=== PATIENT | female | born 1975 | race Caucasian/White ===

== ENCOUNTER 2023-12-15 18:04 | Emergency (ER) | payer OTHER, SELFPAY ==
--- NOTE | ~2023-12-15 | XR_ITS ---
EXAMINATION: XR CHEST CLINICAL INFORMATION: Shortness of breath. COMPARISON: Chest radiograph 07/18/2016. TECHNIQUE: 2 views of the chest were obtained. FINDINGS: Normal appearance of the cardiomediastinal silhouette. No focal airspace opacities, pleural effusion or pneumothorax. No acute osseous findings. Visualized upper abdomen is within normal limits. XR/XR chest 2V IMPRESSION: No acute cardiopulmonary findings.
[2023-12-15 18:30] VITALS: BP 144/94; PULSE 99; RESP 16; TEMP 36.8; O2SAT 100; BMI 33.0
--- NOTE | 2023-12-15 18:30 | ED_ITS ---
HPI - SOB/Dyspnea General Chief Complaint: Upper Respiratory Symptoms Stated Complaint: referred by for chest xray Time Seen by Provider: 12/15/23 21:35 Source: patient Mode of arrival: ambulatory Limitations: no limitations History of Present Illness HPI Narrative: 48 yo female here from for shortness of breath and headache x2 days. no sick contacts. BP 150/110 at [facility] today. ended up leaving and being evaluated at . Admits to chest pain beginning while at [facility] and believes this is due to frustration with waiting at [facility]. on lisinopril for BP- takes this at night. has not taken this today. denies fever, chills, cough, sputum production, calf pain. no recent travel or long car rides. Patient feels fine as long as she is resting, declined losing blood rectally or vaginally, both grandparents at mother side from CHF. Currently patient has no CP or SOB. Related Data Allergies Allergy/AdvReac Type Severity Reaction Status Date / Time honey [HONEY] Allergy Unknown THROAT Unverified 07/06/20 15:04 CLOSES Review of Systems 2 Review of Systems: All other systems are reviewed and are negative Constitutional: Reports as per HPI and Reports no additional constitutional complaints Eyes: Reports as per HPI and Reports no additional eye complaints Reports system reviewed and no additional complaints, except as documented Cardiovascular: Reports as per HPI and Reports no additional cardiovascular complaints Respiratory: Reports as per HPI and Reports no additional respiratory complaints Gastrointestinal: Reports as per HPI and Reports no additional gastrointestinal complaints Genitourinary: Reports no additional female genitourinary complaints Musculoskeletal: Reports no additional musculoskeletal complaints Skin/Breast: Reports system reviewed and no additional complaints, except as docu Psychiatric: Reports no additional psychiatric complaints Endocrine: Reports no additional endocrine complaints Hematologic/Lymphatic: Reports no additional hematologic/lymphatic complaints Allergic/Immunologic: Reports no additional allergic/immunologic complaints Reports system reviewed and no additional complaints, except as documented and Reports Abnormal speech present [facility] Social History Social History Advance Directives: No Advance Directives Information Provided: No Physical Exam 2 Vital Signs: Vital Signs: Last Vital Signs Temp 98.2 F 12/15/23 18:30 Pulse 83 12/15/23 21:06 Resp 20 12/15/23 21:06 BP 131/90 H 12/15/23 21:06 Pulse Ox 100 12/15/23 21:06 O2 Del Method Room Air 12/15/23 21:06 BMI result Body Mass Index 33.0 Vital signs have been reviewed and appear to be correct. Blood pressure elevated. Heart rate normal. Respiratory rate normal. Temperature normal. Oxygen saturation normal. Appearance: Alert. Oriented X3. No acute distress. Head: Normal external exam. Normocephalic. Atraumatic. No Garcia signs noted. No raccoon eyes noted Eyes: PERRLA. EOMI. Conjunctiva and sclera normal. Eyelids normal. ENT: TM's Normal. Pharynx normal. Uvula midline. Moist mucous membranes. No trismus noted. No drooling noted. No muffled voice noted. Neck: Normal inspection. Neck supple. FROM. No adenopathy. Thyroid Normal. No meningeal signs. No neck mass noted. CVS: Normal heart rate and rhythm. Heart sound normal. No murmurs noted. Pulses normal throughout. Respiratory: No respiratory distress. Painless inspiration. Breath sounds normal. No wheezes/rales/rhonchi noted. Chest nontender. No accessory muscle usage noted or decreased air movement noted. Abdomen: Soft and nontender. Bowel sounds normal in all 4 quadrants. No distention noted. No organomegaly noted. No visible injury noted. Back: No CVA tenderness. Full range of motion noted. Skin: Skin warm and dry. Normal skin color. Normal skin turgor. No rashes/lesions/lacerations noted. Extremities: No lower extremity edema. Extremities exhibit normal range of motion. Extremities nontender. Neuro: Oriented X 3. Cranial nerve exam: II-XII are grossly intact No motor deficit. No sensory deficit. Reflexes normal. Course Course Course Narrative: RME:?48 yo female here from for shortness of breath and headache x2 days. no sick contacts. BP 150/110 at [facility] today. ended up leaving and being evaluated at . Admits to chest pain beginning while at [facility] and believes this is due to frustration with waiting at [facility]. on lisinopril for BP- takes this at night. has not taken this today. denies fever, chills, cough, sputum production, calf pain. no recent travel or long car rides. Full HPI, ROS and PE to be performed by the primary ED provider. Reevaluation(s) Reevaluation #1: 48-year-old female came in for shortness of breath with exertion for the past few weeks, has unremarkable cardiac workup, negative chest x-ray, labs revealed anemia but patient declined any acute active blood loss, no risk for pulmonary embolism with negative D-dimer. Will discharge the patient to follow-up with cardiology as an outpatient. Time: 23:12 Medical Decision Making Differential Diagnosis Differential Diagnoses: The differential diagnosis associated with the presentation includes ( ACS, CHF, severe anemia, electrolyte derangement, upper respiratory infection, pneumonia, pneumothorax, pleural effusion.) Admission/Observation Consideration of admission/observation: Escalation of care including admission/observation considered Lab Data MDM Lab Attestation statement: I reviewed the patient's lab results. 12/15/23 19:09 12/15/23 19:09 Labs: Lab Results 12/15/23 12/15/23 12/15/23 Range/Units 19:09 19:10 21:59 WBC 8.6 (4.8-10.8) X10*3/uL RBC 4.05 L (4.20-5.50) X10*6/uL Hgb 9.3 L (12.0-16.0) g/dl Hct 29.7 L (37.0-47.0) % MCV 73.3 L (80.0-98.0) fL MCH 23.0 L (27.0-33.0) pg MCHC 31.3 (31.0-35.0) g/dl RDW 16.2 H (11.0-16.0) % Plt Count 240 (160-400) X10*3/uL MPV 10.0 (9.4-12.3) fL Immature Gran % (Auto) 0.3 (0.0-0.4) % Neut % (Auto) 75.3 H (45-73) % Lymph % (Auto) 15.9 L (20-40) % [place] % (Auto) 5.9 (2-11) % Eos % (Auto) 1.9 (0-4) % Baso % (Auto) 0.7 (0-2) % Lymph # (Auto) 1.4 (1.2-4.9) X10*3/uL [place] # (Auto) 0.5 (0.1-1.2) X10*3/uL Eos # (Auto) 0.2 (0.0-0.4) X10*3/uL Baso # (Auto) 0.1 (0.0-0.2) X10*3/uL Abs Immat Gran (auto) 0.03 (0.00-0.03) X10*3/uL Absolute Neuts (auto) 6.5 (2.0-8.3) x10*3/uL Absolute Nucleated RBC 0.000 (0.0-0.012) X10*3/uL Nucleated RBC % (auto) 0.0 (0.0-0.2) /100WBC PT 12.6 (11.1-13.3) SEC INR 1.0 (0.9-1.1) D-Dimer High Sensitivty 176 NG/ML Sodium 136 (135-145) mmol/L Potassium 4.0 (3.3-5.1) mmol/L Chloride 107 (96-108) mmol/L Carbon Dioxide 23 (22-29) mmol/L Anion Gap 10 L (12-20) BUN 11 (9-16) mg/dL Creatinine 0.76 (0.5-1.4) mg/dL Estim Creat Clear Calc 106.1 Estimated GFR > 60 Random Glucose 95 (60-115) mg/dL Calcium 9.0 (8.4-10.2) mg/dL Magnesium 1.9 (1.6-2.6) mg/dL Total Bilirubin 0.6 (0.0-1.0) mg/dL AST 15 (5-31) U/L ALT 10 (0-31) U/L Alkaline Phosphatase 94 (39-117) U/L Troponin I High Sens < 2.7 < 2.7 (<3.5-17.0) ng/L B-Natriuretic Peptide < 10 (<100) pg/mL Total Protein 7.1 (6.5-8.0) g/dL Albumin 4.1 (3.5-5.0) g/dL Influenza Type A (PCR) NEGATIVE (Negative) Influenza Type B (PCR) NEGATIVE (Negative) RSV RNA Qual (PCR) NEGATIVE (Negative) SARS-CoV-2 RNA (RT-PCR) NEGATIVE (Negative) Independent Interpretation I performed an independent interpretation of an: EKG ( Normal sinus rhythm at 83 beats per minute, LVH, normal intervals, no ST-T changes, no change from prior EKG.) and Plain X-Ray ( Chest: No acute intrathoracic pathology.) Radiology Impression Discussion of test interpretation with radiology: I have reviewed the radiologist's reading. Discharge Plan Discharge Clinical Impression: Dyspnea, Anemia Patient Disposition: Home, Self-Care Instructions: Anemia (ED), Dyspnea (ED) Referrals: Adeola Jackson MD [Primary Care Provider] - Jaime Thacker MD [Physician] -
--- NOTE | 2023-12-15 18:32 | ECG_ITS ---
Test Reason : CHEST PAIN Blood Pressure : / mmHG Vent. Rate : 083 BPM Atrial Rate : 083 BPM P-R Int : 136 ms QRS Dur : 076 ms QT Int : 368 ms P-R-T Axes : 079 048 047 degrees QTc Int : 432 ms Normal sinus rhythm Possible Left atrial enlargement Minimal voltage criteria for LVH, may be normal variant ( Sokolow-Nick ) Borderline ECG When compared with ECG of 24-APR-2007 22:53, No significant change was found Referred By: Estelle Greenberg Electronically Signed By:KENJI LANGSTON
[2023-12-15 19:15] LABS: Basophils Absolute Auto 0.1 X10*3/uL (0.0-0.2); Basophils Percent Auto 0.7 % (0-2); Eosinophils Absolute Auto 0.2 X10*3/uL (0.0-0.4); Eosinophils Percent Auto 1.9 % (0-4); Hematocrit 29.7 % (37.0-47.0); Hemoglobin 9.3 g/dl (12.0-16.0); Imm Gran Abs Auto 0.03 X10*3/uL (0.00-0.03); Imm Gran Pct Auto 0.3 % (0.0-0.4); Lymphocytes Absolute Auto 1.4 X10*3/uL (1.2-4.9); Lymphocytes Percent Auto 15.9 % (20-40); Mean Corpuscular HGB Conc 31.3 g/dl (31.0-35.0); Mean Corpuscular Volume 73.3 fL (80.0-98.0); Monocytes Absolute Auto 0.5 X10*3/uL (0.1-1.2); Monocytes Percent Auto 5.9 % (2-11); Neutrophils Absolute Auto 6.5 x10*3/uL (2.0-8.3); Neutrophils Percent Auto 75.3 % (45-73); Platelet Count 240 X10*3/uL (160-400); Red Blood Count 4.05 X10*6/uL (4.20-5.50); Red Cell Distribution Width 16.2 % (11.0-16.0); White Blood Count 8.6 X10*3/uL (4.8-10.8)
[2023-12-15 19:16] LABS: MANUAL DIFF FLAG NO
[2023-12-15 19:22] LABS: Prothrombin Time 12.6 SEC (11.1-13.3)
[2023-12-15 19:30] LABS: Alanine Aminotransferase 10 U/L (0-31); Albumin Level 4.1 g/dL (3.5-5.0); Alkaline Phosphatase 94 U/L (39-117); Anion Gap 10 (12-20); Aspartate Amino Transferase 15 U/L (5-31); Bilirubin Total 0.6 mg/dL (0.0-1.0); Blood Urea Nitrogen 11 mg/dL (9-16); Carbon Dioxide 23 mmol/L (22-29); Chloride 107 mmol/L (96-108); Creatinine Clr Calc Pharmacy 106.1; Estimated Glomerular Filt Rate > 60; Glucose Random 95 mg/dL (60-115); Magnesium 1.9 mg/dL (1.6-2.6); Sodium 136 mmol/L (135-145); Total Protein 7.1 g/dL (6.5-8.0)
[2023-12-15 19:39] LABS: Troponin-I High Sensitivity < 2.7 ng/L (<3.5-17.0)
[2023-12-15 19:52] LABS: Influenza A PCR NEGATIVE (Negative); Influenza B PCR NEGATIVE (Negative); Resp Syncy Virus RNA Qual PCR NEGATIVE (Negative); SARS COV2 PCR INHOUSE NEGATIVE (Negative)
[2023-12-15 21:06] VITALS: BP 131/90; PULSE 83; RESP 20; O2SAT 100
[2023-12-15 21:46] LABS: D Dimer High Sensitivity 176 NG/ML
[2023-12-15 22:29] LABS: B Type Natriuretic Peptide < 10 pg/mL (<100)
[2023-12-15 22:31] LABS: Troponin-I High Sensitivity < 2.7 ng/L (<3.5-17.0)
== END 2023-12-16 00:04 | disposition home or self-care (01) ==
PROVIDERS: Physician Assistant Medical; Emergency Provider Emergency Medicine; PCP Internal Medicine
DX: R06.00 Dyspnea, unspecified (principal); D64.9 Anemia, unspecified; Z11.52 Encounter for screening for COVID-19; Z20.828 Contact with and (suspected) exposure to other viral communicable diseases
CPT/HCPCS: 0241U; 36415; 71046; 80053; 83735; 83880; 84484; 85025; 85379; 85610; 93005; 99283; 99284

== ENCOUNTER → 2023-12-15 18:32 | Outpatient (BNV) | payer OTHER, SELFPAY | PROVIDERS: Emergency Provider Emergency Medicine; PCP Internal Medicine; Visit Provider Internal Medicine | DX: R07.9 Chest pain, unspecified (principal) | CPT/HCPCS: 93010 ==

== ENCOUNTER 2024-01-08 08:07 | Outpatient (AMB) | payer OTHER, SELFPAY ==
[2024-01-08 08:12] VITALS: BP 124/82; PULSE 69; BMI 32.9
--- NOTE | 2024-01-08 08:12 | MHC.OFFVIS ---
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 She ruled out for ACS, she did have anemia with hemoglobin 9.3, did not report bleeding. She was subsequently seen in the [facility] Emergency room for shortness of breath and vaginal bleeding. Hemoglobin was 7.3. She was admitted and given a unit of packed cells, then started on Provera. Today she presents for cardiology consultation for her initial chest discomfort and shortness of breath. She states that her breathing has been better since getting the blood transfusion. It is still not back to normal but improved. She reports that she does get an aching in her left upper chest and below her left breast when she does exertional activities such as climbing stairs or ladders at work. This is different than the chest discomfort she reported when she came to the emergency room. Her primary symptom at that time was the shortness of breath. She reports a prior diagnosis of SVT and will feel intermittent brief heart palpitations. These last seconds and go away if she coughs. She has not had any sustained rapid palpitations lasting over a minute. No lightheadedness, presyncope, syncope, falls. No PND, orthopnea or edema. She reports that she normally has good activity tolerance. 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 Besides SVT she has no other cardiac history. She states her maternal grand parents each had Congestive heart failure. Her mother has no cardiac history. She does not know the health status of her father. History of smoking, quit 2 years ago. [facility] Family History (Updated 01/08/24 @ 09:02 by PETER Al) Maternal Grandmother CHF (congestive heart failure) Maternal Grandfather CHF (congestive heart failure) Social History (Updated 01/08/24 @ 09:03 by PETER Al) Patient Tobacco Use Status: Former Tobacco user Quit Date: quit 2021 Review of Systems Const All systems reviewed & are unremarkable except as noted in HPI and below ENT Denies dizziness Card Details: aching in left upper chest and below left breast Denies chest pain, Denies chest pain at rest, Denies chest pain with activity, Denies rapid heart rate, Denies pedal edema, Denies edema, Denies leg edema, Denies lightheadedness, Denies palpitations, Denies dyspnea, Reports dyspnea on exertion and Denies orthopnea Resp Denies cough, Denies dyspnea and Reports dyspnea on exertion GI Denies hematochezia and Denies change in stool character Musc Denies abnormal gait, Denies limited range of motion, Denies muscle cramps, Denies muscle weakness, Denies numbness, Denies radiating pain into limb, Denies stiffness and Denies tingling Neuro Denies abnormal gait, Denies dizziness, Denies numbness and Denies tingling Endo Denies palpitations Physical Exam Vital Signs: Last Vital Signs Pulse 69 01/08/24 08:12 BP 124/82 01/08/24 08:12 BMI result Body Mass Index 32.9 Const General: cooperative, healthy appearing, comfortable and no acute distress Orientation/consciousness: patient oriented x3 Neck Neck: Yes normal visual inspection and Yes no JVD Resp Effort & Inspection: normal respiratory effort Auscultation: clear to auscultation bilaterally, no rales, no rhonchi and no wheezes Cardio Jugular venous distension: no JVD Rate: regular rate Rhythm: regular rhythm Heart sounds: S1 normal heart sound present, S2 normal heart sound present, no murmurs and no rubs Neuro General: patient oriented x3 Extrem General: Yes normal to inspection and No no pedal edema Psych Appearance: grossly normal Mental Status: mental status grossly normal Speech and movement: Normal speech and movement present Assessment & Plan Assessment & Plan (1) Chest discomfort: Code(s): R07.89 - Other chest pain Plan: ER evaluation for shortness of breath and chest discomfort. EKG showed no ischemic changes. Troponin level normal x2. Hemoglobin 9.3. Patient denied having bleeding issues at that time. She then presented to [facility] emergency room a few weeks later with vaginal bleeding that had gone on greater than a month and shortness of breath. She was found to have significant anemia with hemoglobin down to 7.3. She was admitted and treated with 1 unit of packed cells and started on Provera for management of abnormal uterine bleeding. Going forward she will likely need an endometrial biopsy. Her shortness of breath has improved some. She is doing her normal day-to-day activities at this time. She describes getting intermittent chest aching when she is doing physical activity at work such as climbing stairs and ladders. Her EKG done on 12/15/2023 showed sinus rhythm with LVH, rate 83. Will check an echocardiogram to evaluate EF and LV wall thickness. Will check a exercise stress test to evaluate for any ischemia. She says she is having repeat labs through [facility] [employer] system today. Her hemoglobin should be greater than 9 for the stress test to be performed. If below 9 and we may need to postpone until her levels have stabilized. Her shortness of breath is most likely related to her anemia. Her chest discomfort is being further evaluated. Signs and symptoms of angina reviewed with her and she states understanding. Cardiology follow-up 4-6 weeks, sooner if needed. (2) Shortness of breath: Code(s): R06.02 - Shortness of breath Plan: As above (3) Anemia: Code(s): D64.9 - Anemia, unspecified Plan: As above (4) Hospital discharge follow-up: Code(s): Z09 - Encounter for follow-up examination after completed treatment for conditions other than malignant neoplasm Plan: As above Plan Time spent on chart review, documentation, interview, assessment Orders: Orders CA echo transthoracic complete Today R06.02 - Shortness of breath, R07.89 - Other chest pain CA stress test Today R06.02 - Shortness of breath, R07.89 - Other chest pain Coding Level of Care Code Tele New Pt Level 4 (58628) Diagnoses Chest discomfort R07.89 Shortness of breath R06.02 Anemia D64.9 Hospital discharge follow-up Z09 Time Spent (min) 30
== END 2024-01-08 08:38 | disposition home or self-care (01) ==
PROVIDERS: PCP Internal Medicine; Visit Provider Nurse Practitioner Family
DX: R07.89 Other chest pain (principal); R06.02 Shortness of breath; D64.9 Anemia, unspecified; Z09 Encounter for follow-up examination after completed treatment for conditions other than malignant neoplasm
CPT/HCPCS: 99204

== ENCOUNTER → 2024-01-08 08:07 | Outpatient (BNVA) | payer OTHER, SELFPAY | PROVIDERS: PCP Internal Medicine; Visit Provider Nurse Practitioner Family ==

== ENCOUNTER 2024-01-27 12:31 | Outpatient (REF) | payer OTHER, SELFPAY ==
[2024-01-27 12:44] LABS: MANUAL DIFF FLAG NO
[2024-01-27 12:58] LABS: Basophils Absolute Auto 0.1 X10*3/uL (0.0-0.2); Basophils Percent Auto 1.3 % (0-2); Eosinophils Absolute Auto 0.1 X10*3/uL (0.0-0.4); Hematocrit 30.9 % (37.0-47.0); Imm Gran Abs Auto 0.03 X10*3/uL (0.00-0.03); Imm Gran Pct Auto 0.6 % (0.0-0.4); Lymphocytes Absolute Auto 1.1 X10*3/uL (1.2-4.9); Lymphocytes Percent Auto 22.6 % (20-40); Mean Corpuscular HGB Conc 29.1 g/dl (31.0-35.0); Mean Corpuscular Volume 75.6 fL (80.0-98.0); Mean Platelet Volume 10.5 fL (9.4-12.3); Monocytes Absolute Auto 0.5 X10*3/uL (0.1-1.2); Monocytes Percent Auto 9.8 % (2-11); Neutrophils Absolute Auto 2.9 x10*3/uL (2.0-8.3); Neutrophils Percent Auto 62.7 % (45-73); Platelet Count 262 X10*3/uL (160-400); Red Blood Count 4.09 X10*6/uL (4.20-5.50); Red Cell Distribution Width 17.2 % (11.0-16.0); White Blood Count 4.7 X10*3/uL (4.8-10.8)
== END 2024-01-27 12:32 | disposition home or self-care (01) ==
LOC: HO.LAB 12:31
PROVIDERS: PCP Internal Medicine; Visit Provider Nurse Practitioner
DX: D64.9 Anemia, unspecified (principal)
CPT/HCPCS: 36415; 85025

== ENCOUNTER → 2024-01-28 07:53 | Outpatient (REF) | payer OTHER, SELFPAY ==
--- NOTE | 2024-01-28 07:56 | CA_ITS ---
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 The visually estimated ejection fraction is between 65-70%. Spectral Doppler is indicative of a normal filling pattern. Peak GLS is -22.4%, within normal limits. Right Ventricle Normal right ventricular cavity size and systolic function. Atria Both atria are normal in size. There is no evidence of interatrial shunt. Aortic Valve Normal aortic valve structure and function. There is no aortic valve stenosis. There is no aortic valve regurgitation. Mitral Valve Normal mitral valve structure and function. There is trace mitral valve regurgitation. There is no mitral valve stenosis. Pulmonic Valve The pulmonic valve is likely normal. There is trace pulmonic valve regurgitation. Tricuspid Valve Normal tricuspid valve structure. There is trace tricuspid valve regurgitation. The right ventricular systolic pressure is normal. The right ventricular systolic pressure is 27 mmHg. Normal right atrial pressure. There is no evidence of pulmonary hypertension. Great Vessels The pulmonary artery was not well visualized. There is no dilatation of the ascending aorta measuring 3.20 cm. Venous The inferior vena cava is normal in size and collapses greater than 50% with inspiration. Pericardium/Pleural There is no evidence of pericardial effusion. Prior Study Comparison no previous study in the last 5 years for comparison Measurements 2D Linear Measurements IVSd: 1.05 0.6-0.9/0.6-1.0 cm LVIDd: 5.10 3.9-5.3/4.2-5.9 cm LVIDd Index: 2.56 2.4-3.2/2.2-3.1 cm/m2 LVIDs: 3.03 2.0-3.6 cm LVPWd: 0.95 0.7-1.1 cm LA Diam: 3.40 2.7-3.8/3.0-4.0 cm LAIDs Index: 1.71 1.5-2.3 cm/m2 LV Mass: 233.64 67-162/88-224 g LV Mass Index: 117.41 43-95/49-115 g/m2 LVOT Diam: 2.10 3.0+(-)1.3 cm 2D Systolic Function EF 4C: 64.40 >55% EF 2C: 69.00 >55% EF BiP: 66.30 >55% Mitral Valve MV Pk E: 0.91 MV PK A: 0.51 MV Decel Time: 208.00 E/A: 1.80 E'Lateral: 12.10 E'Medial: 7.83 E/E' Med: 11.70 E/E' Lat: 7.50 PHT: 61.00 MVA PHT: 3.61 Decel [place]: 4.39 Aortic Valve AoV Pk Kimo: 1.64 AoV Mn Kimo: 1.09 AoV VTI: 0.40 AoV Pk Grad: 11.00 Aov Mn Grad: 6.00 RAJENDRA Cont.VTI: 2.04 LVOT LVOT Pk Kimo: 1.09 LVOT Mn Kimo: 0.71 LVOT VTI: 0.23 LVOT Pk Grad: 5.00 LVOT Mn Grad: 2.00 LVOT Diam: 2.10 LVOT Area: 3.46 Diastolic Function MV Pk E: 0.91 MV Pk A: 0.51 E/A: 1.80 E'Medial: 7.83 E/E' Med: 11.70 E' Laterial: 12.10 E/E' Lat: 7.50 Right Ventricle TAPSE (mm): 25.20 TVS' Kimo: 13.10 Tricuspid Valve TR Pk Kimo: 2.46 TR Pk Grad: 24.00 RA Press: 3.00 RVSP: 27.00 Great Vessels Aorta Sinus of Valsalva: 3.21 2.0-3.[address] [place]: 2.56 1.7-3.4 cm Ao Asc: 3.20 2.1-3.4 cm Updated in Other Vendor System with Status of Final Delmer Torres MD electronically signed on 01/28/2024 3:57:02 PM with status of Final
--- NOTE | 2024-01-28 07:56 | CA_ITS ---
Acquisition Time: 2024-01-28 09:09:28 Total Exercise Time: 00:05:01 Test Indications: CP Medications: LISINOPRIL SERTRALINE PROVERA Protocol: GENE Max HR: 153 BPM 87% of Pred: 174 BPM Max BP: 190/090 mmHG Max Work Load: 7.0 METS Exercise stress test exercise 5 min 1 sec of Gene protocol achieving 87% MPHR, with 4/10 chest pressure, with mild to moderate SOB, with isolated PVCs. with max BP of 190/90, without EKG changes. Chest pressure, breathing, and dizziness resolved witrh rest. Test reviewed with Dr. Torres Referred By: Brenda Lester Overread By: Madalyn Iglesias
== END ==
LOC: HO.CARD 07:53
PROVIDERS: PCP Internal Medicine; Visit Provider Nurse Practitioner Family
DX: R07.89 Other chest pain (principal); R06.02 Shortness of breath
CPT/HCPCS: 93017; 93306

== ENCOUNTER → 2024-01-28 07:56 | Outpatient (BNV) | payer OTHER, SELFPAY | PROVIDERS: PCP Internal Medicine; Visit Provider Internal Medicine Cardiovascular Disease | DX: R06.02 Shortness of breath (principal); I49.3 Ventricular premature depolarization | CPT/HCPCS: 93016; 93018; 93320; 93350; 93356 ==

== ENCOUNTER → 2024-02-27 10:52 | Outpatient (REF) | payer OTHER, SELFPAY ==
--- NOTE | 2024-02-27 10:54 | CA_ITS ---
Acquisition Time: 2024-02-27 10:59:07 Total Exercise Time: 00:06:30 Test Indications: cp, sob Medications: see h Protocol: GENE Max HR: 157 BPM 90% of Pred: 174 BPM Max BP: 145/068 mmHG Max Work Load: 7.7 METS Exercise stress test exercise 6 min 30 sec of Gene protocol achieving 90% MPHR, with moderate SOB, no chest discomfort, withisolated PVCs, with normotensive response to exercise, without EKG changes, Echo images obtained by tech at rest and immediately post peak exercise. Definity contrast. Breathing and dizziness returned to baseline. Test reviewed with Dr. Holland. Echo images reviewed at rest and post stress: At rest: Normal EF and no RWMA. Post stress: Appropriate augmentation of LV systolic function, LV cavity appears smaller and no RWMA. No diastolic dysfunction noted. Conclusion: Normal stress echo at achieved workload. Referred By: Brenda Lester Overread By: Isaac Holland
== END ==
LOC: HO.CARD 10:52
PROVIDERS: PCP Internal Medicine; Visit Provider Nurse Practitioner Family
DX: R07.89 Other chest pain (principal); R06.02 Shortness of breath; R94.39 Abnormal result of other cardiovascular function study
CPT/HCPCS: 93350; Q9957

== ENCOUNTER → 2024-02-27 10:54 | Outpatient (BNV) | payer OTHER, SELFPAY | PROVIDERS: PCP Internal Medicine; Visit Provider Internal Medicine Cardiovascular Disease | DX: R07.9 Chest pain, unspecified (principal); R06.02 Shortness of breath | CPT/HCPCS: 93351; 93352 ==

== ENCOUNTER 2024-03-08 09:45 | Outpatient (AMB) | payer OTHER, SELFPAY ==
--- NOTE | 2024-03-08 09:47 | MHC.OFFVIS ---
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 She ruled out for ACS, she did have anemia with hemoglobin 9.3, did not report bleeding. She was subsequently seen in the [facility] Emergency room for shortness of breath and vaginal bleeding. Hemoglobin was 7.3. She was admitted and given a unit of packed cells, then started on Provera. Her cardiac evaluation she did undergo an echocardiogram and stress echo and now presents for follow-up. Today she reports that she does have some shortness of breath with exertion. She has not had concerning issues with chest discomfort. She does still have some mild anemia as far as she is aware. She has not had any recurrent vaginal bleeding. No shortness of breath at rest, PND, orthopnea or edema. No lightheadedness, presyncope, syncope, falls. [facility] Family History Maternal Grandmother CHF (congestive heart failure) Maternal Grandfather CHF (congestive heart failure) Social History Patient Tobacco Use Status: Former Tobacco user Quit Date: quit 2021 Review of Systems Const All systems reviewed & are unremarkable except as noted in HPI and below ENT Denies dizziness Card Denies chest pain, Denies chest pain at rest, Denies chest pain with activity, Denies rapid heart rate, Denies pedal edema, Denies edema, Denies leg edema, Denies lightheadedness, Denies palpitations, Denies dyspnea, Reports dyspnea on exertion and Denies orthopnea Resp Denies cough, Denies dyspnea and Reports dyspnea on exertion GI Denies hematochezia and Denies change in stool character Musc Denies abnormal gait, Denies limited range of motion, Denies muscle cramps, Denies muscle weakness, Denies numbness, Denies radiating pain into limb, Denies stiffness and Denies tingling Neuro Denies abnormal gait, Denies dizziness, Denies numbness and Denies tingling Endo Denies palpitations Physical Exam Vital Signs: Last Vital Signs Pulse 71 03/08/24 09:48 BP 134/80 03/08/24 09:48 BMI result Body Mass Index 33.2 Const General: cooperative, healthy appearing, comfortable and no acute distress Orientation/consciousness: patient oriented x3 Neck Neck: Yes normal visual inspection and Yes no JVD Resp Effort & Inspection: normal respiratory effort Auscultation: clear to auscultation bilaterally, no crackles, no rales, no rhonchi and no wheezes Cardio Jugular venous distension: no JVD Rate: regular rate Rhythm: regular rhythm Heart sounds: S1 normal heart sound present, S2 normal heart sound present, no murmurs and no rubs Neuro General: patient oriented x3 Extrem General: Yes normal to inspection and No no pedal edema Psych Appearance: grossly normal Mental Status: mental status grossly normal Speech and movement: Normal speech and movement present Assessment & Plan Assessment & Plan (1) Chest discomfort: Code(s): R07.89 - Other chest pain Category: Medical Plan: Recent ER evaluation for shortness of breath and chest discomfort and ruled out for ACS.. EKG showed no ischemic changes. Troponin level normal x2. Following that evaluation she was seen at [facility] for vaginal bleeding and significant anemia which was treated. Following treatment of anemia her shortness of breath did improve some. On last visit she reported getting intermittent chest aching when she is doing physical activity at work such as climbing stairs and ladders. An echocardiogram was done on 02/27/2024 showing normal study. A stress echocardiogram done on 02/27/2024 showed exercise 6 minutes 30 seconds with moderate shortness of breath, no EKG or echo evidence of ischemia. Test results reviewed with her in detail. She is currently reporting no clear anginal sounding symptoms. On last labs she continued to have mild anemia which can contribute to her shortness of breath. Signs and symptoms of angina reviewed with her and she states understanding. Emergency care if ever needed for symptoms. Cardiology follow-up p.r.n.. (2) Shortness of breath: Code(s): R06.02 - Shortness of breath Category: Medical Plan: As above (3) Anemia: Code(s): D64.9 - Anemia, unspecified Category: Medical Plan: Hemoglobin 9.3 at time of recent ER visit. Patient denied having bleeding issues at that time. She then presented to [facility] emergency room a few weeks later with vaginal bleeding that had gone on greater than a month and shortness of breath. She was found to have significant anemia with hemoglobin down to 7.3. She was admitted and treated with 1 unit of packed cells and started on Provera for management of abnormal uterine bleeding. Going forward she will likely need an endometrial biopsy. Today she reports no recurrent vaginal bleeding since then. She is following with her cell tester provider. Plan Time spent on chart review, documentation, interview, assessment Coding Level of Care Code Est Pt Level 3 (69485) Diagnoses Chest discomfort R07.89 Shortness of breath R06.02 Anemia D64.9 Time Spent (min) 24
[2024-03-08 09:48] VITALS: BP 134/80; PULSE 71; BMI 33.2
== END 2024-03-08 10:44 | disposition home or self-care (01) ==
PROVIDERS: PCP Internal Medicine; Visit Provider Nurse Practitioner Family
DX: R07.89 Other chest pain (principal); R06.02 Shortness of breath; D64.9 Anemia, unspecified
CPT/HCPCS: 99213

== ENCOUNTER → 2024-03-08 09:45 | Outpatient (BNVA) | payer OTHER, SELFPAY | PROVIDERS: PCP Internal Medicine; Visit Provider Nurse Practitioner Family ==

== ENCOUNTER 2024-05-19 20:23 | Emergency (ER) | payer SELFPAY ==
--- NOTE | ~2024-05-19 | CT_ITS ---
EXAMINATION: CT ABDOMEN AND PELVIS WITHOUT CONTRAST CLINICAL INFORMATION: right and left flank pain, r/o renal stone. COMPARISON: No pertinent prior studies are available for comparison. TECHNIQUE: Multidetector volumetric imaging was performed from the superior aspect of the liver through the pubic symphysis without contrast per renal stone protocol. Sagittal and coronal reformatted images were obtained on the technologist workstation. This CT examination was performed using dose optimization techniques as appropriate, variously including the following: *Automated exposure control *Adjustment of mA and/or kV according to patient size (this includes techniques or standardized protocols for targeted exams where dose is matched to indication/reason for exam; i.e. extremities or head) *Use of iterative reconstruction technique DLP: 706 mGy-cm. FINDINGS: LUNG BASES: The visualized lung bases are unremarkable. LIVER, GALLBLADDER, BILIARY TREE: The non-contrast liver is normal in size, shape, and attenuation. No focal hepatic lesion or biliary ductal dilatation is present. The gallbladder is unremarkable with no evidence of radiopaque gallstones, gallbladder wall thickening, or obvious pericholecystic inflammatory changes. PANCREAS: Unremarkable. SPLEEN: Unremarkable. ADRENAL GLANDS: Unremarkable. KIDNEYS AND URETERS: Cortical scarring in scattered intrarenal calcifications seen within the right kidney with mild compensatory hypertrophy of the contralateral left kidney. I do not appreciate any hydronephrosis or obstructive changes to either kidney. No perinephric stranding. BLADDER: Decompressed but otherwise unremarkable GASTROINTESTINAL TRACT: The small and large bowel are unremarkable. The appendix is unremarkable. ABDOMINAL WALL: No significant hernia is appreciated. LYMPHOVASCULAR STRUCTURES: No lymphadenopathy. The aorta is unremarkable.. PELVIC VISCERA: Unremarkable. OSSEUS STRUCTURES: Unremarkable. CT/CT abdomen pelvis wo IV con IMPRESSION: No acute intra-abdominal process seen. Chronic appearing changes as described above. I do not appreciate any obstructive changes to either kidney.
[2024-05-19 20:30] VITALS: BP 178/99; PULSE 77; RESP 20; TEMP 37.2; O2SAT 98; BMI 32.8
--- NOTE | 2024-05-19 20:30 | ED.BACK ---
HPI - Back Pain/Injury General Chief Complaint: Back Pain/Injury Stated Complaint: low back pain radiating to right leg Time Seen by Provider: 05/19/24 20:59 Source: patient Mode of arrival: ambulatory Limitations: no limitations History of Present Illness HPI Narrative: Patient is a 49-year-old female who presents to the emergency department for evaluation of lower back pain. She reports right greater than left lower back pain. Pain on the right radiates down into the buttock and the posterior thigh about mid way down. She also endorses pain on the left which she feels intermittently radiating into her left groin. She reports onset approximately 4 days ago without any precipitating injury. Denies history of similar pain in the past. Today she had a single episode of a small amount of bright red blood in her urine, admits to urinary frequency, and had some mild discomfort upon urination. She denies associated fevers, chills, nausea, vomiting, upper abdominal pain, abnormal vaginal discharge/bleeding, concern for sexually transmitted infections, saddle paresthesias, bladder or bowel dysfunction. Related Data Home Medications ?Medication ?Instructions ?Recorded ?Confirmed lisinopril 2.5 mg tablet 2.5 mg PO DAILY 01/08/24 03/08/24 sertraline 50 mg tablet (Zoloft) 50 mg PO DAILY 01/08/24 03/08/24 Allergies Allergy/AdvReac Type Severity Reaction Status Date / Time honey [HONEY] Allergy Unknown THROAT Verified 05/20/24 00:06 CLOSES Review of Systems Review of Systems: Yes all other systems are reviewed and are negative [facility] Past Medical History Attestation statement: The following information was validated with the patient. Source: old records reviewed Family History Family History Maternal Grandmother CHF (congestive heart failure) Maternal Grandfather CHF (congestive heart failure) Social History Social History Patient Tobacco Use Status: Former Tobacco user Advance Directives: No Advance Directives Information Provided: No Physical Exam Vital Signs: Vital Signs: Last Vital Signs Temp 97.7 F 05/19/24 22:50 Pulse 58 05/19/24 22:50 Resp 20 05/19/24 22:50 BP 154/90 H 05/19/24 22:50 Pulse Ox 100 05/19/24 22:50 O2 Del Method Room Air 05/19/24 22:50 BMI result Body Mass Index 32.8 Appearance: Alert.?Oriented to person, place and time. No acute distress.?Normal affect. Eyes: Pupils equal, round and reactive to light.? ENT: Pharynx normal.?? Neck: Normal inspection.? Neck supple.?? CVS: Heart sounds normal. Normal heart rate and rhythm.? Pulses normal.?? Respiratory: No respiratory distress.? Lung sounds clear to auscultation bilaterally?? Abdomen: Soft and non-tender. Normoactive bowel sounds. Right CVA tenderness. No pulsatile mass.?? Skin: Skin warm and dry.? Normal skin color.? Back: Bilateral paraspinal muscle tenderness upon palpation Extremities: No lower extremity edema.? Neuro: Moves all extremities spontaneously. Sensation intact bilaterally. Ambulates with normal steady gait. Course Course Course Narrative: This is a Rapid Medical Examination (RME) performed by Wisam Greenberg PA-C in triage. Full HPI, ROS, assessment and treatment plan per primary provider in the Main ED. 49 yo female here for eval of right low back pain radiating down right thigh x3 days. additionally endorses dull pain to left low back which radiates to left groin. 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 no OTC pain meds at home. no injury/ trauma. denies saddle anesthesia, bowel/ bladder incontinence or retention. + cannot seem to sit comfortably on the triage chair. right CVAT, No midline spinous tenderness or step off deformity. No paraspinal muscle tenderness. Plan: labs, UA, Ct abd/ pelvis Reevaluation(s) Reevaluation #1: CT of the abdomen and pelvis without acute pathology. She has had significant improvement with Toradol. She was comfortable with plan of care for discharge home, she will trial acetaminophen and ibuprofen and rest over the next few days. Advised if she continues to have any further episodes of hematuria she will need to follow up with her primary care doctor she likely may then require referral to Urology for further evaluation. Medications Administered Discontinued Medications Generic Name Dose Route Start Last Admin Trade Name Freq PRN Reason Stop Dose Admin Ketorolac Tromethamine 30 mg 05/19/24 22:51 07/31/24 23:13 Ketorolac Tromethamine 30 Mg/Ml Vial IM 05/19/24 22:52 30 mg ONCE ONE Administration Medical Decision Making Medical Decision Making [facility] Narrative: Patient is a 49-year-old female who presents emergency department for evaluation of lower back pain with radiation and hematuria as per HPI. Overall she appears well, nontoxic, afebrile. She is without tachycardia tachypnea or hypoxia. On examination she does have right CVA tenderness and bilateral paraspinal muscle tenderness. She has difficulty sitting still due to the degree of pain as very intensity. Will obtain CBC to evaluate for leukocytosis/ anemia, CMP and lipase to evaluate for abnormal electrolytes /abnormal renal function/ abnormal hepatic/biliary function, CT of the abdomen and pelvis and Urinalysis. Differential Diagnosis Differential Diagnoses: The differential diagnosis associated with the presentation includes (Pyelonephritis, ureteral calculi, hydronephrosis, urinary tract infection, lumbar strain. Not consistent with cauda equina syndrome. Unlikely to be spinal fracture.) Admission/Observation Consideration of admission/observation: Escalation of care including admission/observation considered Lab Data [facility] Lab Attestation statement: I reviewed the patient's lab results. CBC is without leukocytosis, has baseline microcytic anemia that does not meet acute transfusion criteria, no thrombocytopenia. No VISH. Urinalysis with hematuria, no evidence of infection. HCG negative. 05/19/24 20:50 05/19/24 20:50 Labs: Lab Results 05/19/24 05/19/24 Range/Units 20:50 21:04 WBC 6.7 (4.8-10.8) X10*3/uL RBC 4.60 (4.20-5.50) X10*6/uL Hgb 9.9 L (12.0-16.0) g/dl Hct 32.9 L (37.0-47.0) % MCV 71.5 L (80.0-98.0) fL MCH 21.5 L (27.0-33.0) pg MCHC 30.1 L (31.0-35.0) g/dl RDW 20.3 H (11.0-16.0) % Plt Count 244 (160-400) X10*3/uL MPV 9.5 (9.4-12.3) fL Immature Gran % (Auto) 0.4 (0.0-0.4) % Neut % (Auto) 65.6 (45-73) % Lymph % (Auto) 21.3 (20-40) % [place] % (Auto) 7.8 (2-11) % Eos % (Auto) 3.7 (0-4) % Baso % (Auto) 1.2 (0-2) % Lymph # (Auto) 1.4 (1.2-4.9) X10*3/uL [place] # (Auto) 0.5 (0.1-1.2) X10*3/uL Eos # (Auto) 0.3 (0.0-0.4) X10*3/uL Baso # (Auto) 0.1 (0.0-0.2) X10*3/uL Abs Immat Gran (auto) 0.03 (0.00-0.03) X10*3/uL Absolute Neuts (auto) 4.4 (2.0-8.3) x10*3/uL Absolute Nucleated RBC 0.000 (0.0-0.012) X10*3/uL Nucleated RBC % (auto) 0.0 (0.0-0.2) /100WBC Sodium 138 (135-145) mmol/L Potassium 3.9 (3.3-5.1) mmol/L Chloride 109 H (96-108) mmol/L Carbon Dioxide 23 (22-29) mmol/L Anion Gap 10 L (12-20) BUN 16 (9-16) mg/dL Creatinine 0.95 (0.5-1.4) mg/dL Estim Creat Clear Calc 83.6 Estimated GFR > 60 Random Glucose 113 (60-115) mg/dL Calcium 9.0 (8.4-10.2) mg/dL Magnesium 2.1 (1.6-2.6) mg/dL Total Bilirubin 0.4 (0.0-1.0) mg/dL AST 13 (5-31) U/L ALT 9 (0-31) U/L Alkaline Phosphatase 109 (39-117) U/L Total Protein 7.0 (6.5-8.0) g/dL Albumin 3.9 (3.5-5.0) g/dL Lipase 20 (8-78) U/L Urine Color Yellow Urine Appearance Clear Urine pH 5.5 (5.0-9.0) Ur Specific [place] 1.025 (1.005-1.025) Urine Protein Negative (Neg-Trace) mg/dL Urine Glucose (UA) Negative (Negative) mg/dL Urine Ketones Negative (Negative) mg/dL Urine Blood Large (3+) H (Negative) Urine Nitrite Negative (Negative) Ur Leukocyte Esterase Negative (Negative) Urine RBC 0-2 (0-2) /HPF Urine WBC 0-5 (0-5) /HPF Ur Squamous Epith Cells 0-2 (0-2) /HPF Urine Bacteria None Seen (None Seen) Hyaline Casts 0-2 (0-2) /LPF Urine Test NEGATIVE (NEGATIVE) Radiology Impression Discussion of test interpretation with radiology: I have reviewed the radiologist's reading. Radiologist Impression: CT/CT abdomen pelvis wo IV con IMPRESSION: No acute intra-abdominal process seen. Chronic appearing changes as described above. I do not appreciate any obstructive changes to either kidney. External Record Review External record reviewed: Outpatient record Prescription Management I considered prescription management with: Pain Medication Discharge Plan Discharge Clinical Impression: Lumbar radiculopathy, Hematuria Patient Disposition: Home, Self-Care Instructions: Lumbar Radiculopathy (ED), Hematuria (ED) Additional Instructions: You can take ibuprofen 200 mg, 3 tablets (600mg) every 6-8 hours as needed for pain, in addition to Tylenol 500 mg, 2 tablets (1,000mg) every 4-6 hours as needed for pain, but not to exceed 3 doses daily (3,000mg).? As discussed, if you continue to have blood in your urine please follow-up closely with your primary care doctor, they may consider sending you to urology for further evaluation. Return back to emergency department any new or worsening symptoms or concerns. Prescriptions: No Action sertraline [Zoloft] 50 mg tablet 50 mg PO DAILY lisinopril 2.5 mg tablet 2.5 mg PO DAILY Referrals: Physician,Unknown J [Primary Care Provider] - Stand Alone Forms: Work/School Release Print Language: Irish
[2024-05-19 20:55] LABS: MANUAL DIFF FLAG NO
[2024-05-19 20:59] LABS: Basophils Absolute Auto 0.1 X10*3/uL (0.0-0.2); Basophils Percent Auto 1.2 % (0-2); Eosinophils Absolute Auto 0.3 X10*3/uL (0.0-0.4); Eosinophils Percent Auto 3.7 % (0-4); Hematocrit 32.9 % (37.0-47.0); Hemoglobin 9.9 g/dl (12.0-16.0); Imm Gran Abs Auto 0.03 X10*3/uL (0.00-0.03); Imm Gran Pct Auto 0.4 % (0.0-0.4); Lymphocytes Absolute Auto 1.4 X10*3/uL (1.2-4.9); Lymphocytes Percent Auto 21.3 % (20-40); Mean Corpuscular HGB Conc 30.1 g/dl (31.0-35.0); Mean Corpuscular Hemoglobin 21.5 pg (27.0-33.0); Mean Corpuscular Volume 71.5 fL (80.0-98.0); Mean Platelet Volume 9.5 fL (9.4-12.3); Monocytes Absolute Auto 0.5 X10*3/uL (0.1-1.2); Monocytes Percent Auto 7.8 % (2-11); Neutrophils Absolute Auto 4.4 x10*3/uL (2.0-8.3); Neutrophils Percent Auto 65.6 % (45-73); Platelet Count 244 X10*3/uL (160-400); Red Cell Distribution Width 20.3 % (11.0-16.0); White Blood Count 6.7 X10*3/uL (4.8-10.8)
[2024-05-19 21:16] LABS: Appearance Urine Clear; Color Urine Yellow; Glucose Urine UA Negative (Negative); Leukocyte Esterase Urine Negative (Negative); Nitrite Urine Negative (Negative); PH 5.5 (5.0-9.0); Specific Gravity - Urine 1.025 (1.005-1.025); UMIC TRIGGER UACC YES; Urine Blood Large (3+) (Negative); Urine Ketones Negative (Negative); Urine Protein Negative (Neg-Trace)
[2024-05-19 21:18] LABS: Alanine Aminotransferase 9 U/L (0-31); Albumin Level 3.9 g/dL (3.5-5.0); Alkaline Phosphatase 109 U/L (39-117); Anion Gap 10 (12-20); Aspartate Amino Transferase 13 U/L (5-31); Bilirubin Total 0.4 mg/dL (0.0-1.0); Blood Urea Nitrogen 16 mg/dL (9-16); Carbon Dioxide 23 mmol/L (22-29); Chloride 109 mmol/L (96-108); Creatinine Clr Calc Pharmacy 83.6; Estimated Glomerular Filt Rate > 60; Glucose Random 113 mg/dL (60-115); Lipase 20 U/L (8-78); Magnesium 2.1 mg/dL (1.6-2.6); Potassium 3.9 mmol/L (3.3-5.1); Sodium 138 mmol/L (135-145)
[2024-05-19 21:20] LABS: UPreg QC Valid YES; Urine Pregnancy NEGATIVE (NEGATIVE)
[2024-05-19 21:29] LABS: Bacteria Urine None Seen (None Seen); Hyaline Casts Urine 0-2 /LPF (0-2); RBC Urine 0-2 /HPF (0-2); Squamous Epithelial Cell Urine 0-2 /HPF (0-2); WBC Urine 0-5 /HPF (0-5)
[2024-05-19 22:50] VITALS: BP 154/90; PULSE 58; RESP 20; TEMP 36.5; O2SAT 100
[2024-05-19] MEDS: Ketorolac Tromethamine 30 MG/ML VIAL IM (23:13)
[2024-05-20 00:19] VITALS: BP 130/71; PULSE 61; RESP 16; TEMP 36.9; O2SAT 99
== END 2024-05-20 00:20 | disposition home or self-care (01) ==
PROVIDERS: Physician Assistant Medical; Emergency Provider Emergency Medicine
DX: M54.16 Radiculopathy, lumbar region (principal); R31.9 Hematuria, unspecified; R10.2 Pelvic and perineal pain; Z79.899 Other long term (current) drug therapy
CPT/HCPCS: 36415; 74176; 80053; 81001; 81025; 83690; 83735; 85025; 96372; 99284; J1885

== ENCOUNTER 2024-09-04 00:59 | Emergency (ER) | payer OTHER, SELFPAY ==
[2024-09-04 01:02] VITALS: BP 182/98; PULSE 108; RESP 18; TEMP 36.9; O2SAT 100; BMI 34.4
--- NOTE | 2024-09-04 01:23 | ED.GENADULT ---
HPI - General Adult General Chief complaint: Extremity Problem Stated complaint: Sciatic Nerve pain Time Seen by Provider: 09/04/24 01:12 Source: patient, RN notes reviewed and old records reviewed Mode of arrival: ambulatory Limitations: no limitations History of Present Illness ED Provider: Carson GUERRERO narrative: 49-year-old female with past medical history significant for hypertension presents for evaluation of right lower back pain/hip pain She denies any specific injury. She has had the pain for the last few days. Denies any heavy lifting or twisting injury. She feels as though the pain radiates down the back of her right leg. She has numbness and tingling in the right leg as well Her pain seems worse in the right hip Her pain feels better when she crosses her right leg over her left knee Her pain is 7/10, stabbing and worse with movement. Pain does not go away She is not taking any medications to help alleviate her symptoms Related Data Home Medications ?Medication ?Instructions ?Recorded ?Confirmed lisinopril 2.5 mg tablet 2.5 mg PO DAILY 01/08/24 03/08/24 sertraline 50 mg tablet (Zoloft) 50 mg PO DAILY 01/08/24 03/08/24 Previous Rx's ?Medication ?Instructions ?Recorded cyclobenzaprine 5 mg tablet 5 mg PO TID PRN muscle spasm #20 09/04/24 tabs dexamethasone 4 mg tablet 4 mg PO BID #6 tabs 09/04/24 Allergies Allergy/AdvReac Type Severity Reaction Status Date / Time honey [HONEY] Allergy Unknown THROAT Verified 09/04/24 01:04 CLOSES Review of Systems Constitutional: Constitutional: Denies body ache(s), Denies chills, Denies fever(s) and Denies headache(s) Eyes: Eyes: Denies blurry vision ENT: Denies vertigo, Denies dizziness and Denies headache(s) Cardiovascular: Cardiovascular: Denies chest pain and Denies dyspnea Respiratory: Respiratory: Denies cough and Denies dyspnea Gastrointestinal: Gastrointestinal: Denies abdominal pain, Denies nausea and Denies vomiting Musculoskeletal: Musculoskeletal: Reports back pain, Reports arthralgias, Denies joint swelling, Denies limited range of motion, Reports radiating pain into limb, Reports stiffness and Reports tingling Integumentary/Breasts: Skin/Breast: Denies rash Neurologic: Denies vertigo, Denies dizziness, Denies headache(s) and Reports tingling PMFSH Family History Family History Maternal Grandmother CHF (congestive heart failure) Maternal Grandfather CHF (congestive heart failure) Social History Social History Patient Tobacco Use Status: Former Tobacco user Do you have a plan to hurt others: No Plan Physical Exam ED Vital Signs: Vital Signs - 24 hr 09/04/24 01:02 Temperature 98.4 F Pulse Rate 108 H Respiratory Rate 18 Blood Pressure 182/98 H Pulse Oximetry 100 Oxygen Delivery Method Room Air BMI result Body Mass Index 34.4 Const General: healthy appearing, comfortable, no acute distress, alert and awake Nutritional Appearance: well nourished Orientation/consciousness: patient oriented x3 HENMT Head: Yes normocephalic and Yes atraumatic Eyes Eyelids: Yes eyelids normal Conjunctivae: conjunctivae normal Sclerae: sclerae normal Corneas: corneas normal Pupils: Equal, round and reactive pupils present EOM: EOMs intact bilaterally Neck Neck: Yes full ROM Resp Effort & Inspection: normal respiratory effort, able to speak in complete sentences and not labored Back/Spine/Pelvis Other: Tenderness in the right lumbar sacral region, positive straight leg raise. Skin General skin exam: elasticity normal Neuro General: patient oriented x3 Cranial nerves: Yes Equal, round and reactive pupils present and Yes Bilaterally intact EOM present Cognition (Neuro): normal cognition Extrem Other: Mild tenderness to the right hip. She has full range of motion of the right hip and knee. No calf tenderness. Distal sensation and capillary refill intact. Medical Decision Making Medical Decision Making MDM Narrative: 49-year-old female presents for evaluation of right hip pain and lumbar pain. Her physical exam is somewhat in between sciatica and bursitis. She has pain in the sciatic notch as well as the right hip. Her pain does not follow a classic sciatica pattern to the front of the right knee. She does have numbness and tingling consistent with radiculopathy though. We will treat with dexamethasone, cyclobenzaprine and she will use NSAIDs as well. She was given instructions on stretching exercises and she will follow up with a PCP Differential Diagnosis Differential Diagnoses: The differential diagnosis associated with the presentation includes Sciatica Lumbar radiculopathy Hip bursitis Contusion Back pain Muscle strain Discharge Plan Discharge Clinical Impression: Acute lumbar radiculopathy, Bursitis of hip, right Patient Disposition: Home, Self-Care Instructions: Hip Bursitis (ED), Acute Low Back Pain (ED) Additional Instructions: Your symptoms are somewhat in between conditions called sciatica and hip bursitis. You may take anti-inflammatory pain medication. I also recommend take dexamethasone twice daily for 3 days and cyclobenzaprine as needed for muscle spasms This may make you drowsy, do not drink alcohol or drive after taking it Follow-up with your primary doctor, return for new or worsening symptoms Prescriptions: New dexamethasone 4 mg tablet 4 mg PO BID Qty: 6 0RF cyclobenzaprine 5 mg tablet 5 mg PO TID PRN (Reason: muscle spasm) Qty: 20 0RF No Action sertraline [Zoloft] 50 mg tablet 50 mg PO DAILY lisinopril 2.5 mg tablet 2.5 mg PO DAILY Stand Alone Forms: Work/School Release Print Language: Ukrainian
[2024-09-04] MEDS: dexAMETHasone 4 MG TABLET PO (01:33)
[2024-09-04] MEDS: Cyclobenzaprine HCl 5 MG TABLET PO (01:33)
[2024-09-04 01:45] VITALS: BP 182/98; PULSE 108; RESP 18; TEMP 36.9; O2SAT 100
== END 2024-09-04 01:45 | disposition home or self-care (01) ==
PROVIDERS: Emergency Provider Internal Medicine; PCP Internal Medicine
DX: M54.16 Radiculopathy, lumbar region (principal); M70.71 Other bursitis of hip, right hip; Y93.9 Activity, unspecified; M54.50 Low back pain, unspecified
CPT/HCPCS: 99283; 99284; J8540

== ENCOUNTER 2024-12-16 10:15 | Emergency (ER) | payer OTHER, SELFPAY ==
--- NOTE | 2024-12-16 | ECG_ITS ---
Test Reason : CHEST PAIN Blood Pressure : */* mmHG Vent. Rate : 84 BPM Atrial Rate : 84 BPM P-R Int : 126 ms QRS Dur : 82 ms QT Int : 382 ms P-R-T Axes : 61 17 40 degrees QTcB Int : 451 ms Normal sinus rhythm Possible Left atrial enlargement Septal infarct , age undetermined Abnormal ECG When compared with ECG of 15-Dec-2023 19:01, Septal infarct is now Present Referred By: Generic ED Physician Electronically Signed By: Isaac Holland
--- NOTE | ~2024-12-16 | XR_ITS ---
EXAMINATION: XR CHEST CLINICAL INFORMATION: chest pain COMPARISON: 12/15/2023. TECHNIQUE: Frontal view of the chest was obtained. FINDINGS: The cardiac, hilar, and mediastinal contours are normal. The lungs are clear bilaterally. No pneumothorax or effusion. No focal osseous or soft tissue abnormality. XR/XR chest 1V IMPRESSION: Normal chest. Electronically signed by: Jhoan Iglesias MD 12/16/2024 12:48 PM [facility]
[2024-12-16 10:24] VITALS: BP 185/97; PULSE 96; RESP 18; TEMP 36.6; O2SAT 99; BMI 32.9
[2024-12-16 10:55] LABS: MANUAL DIFF FLAG NO
[2024-12-16 10:57] LABS: Basophils Absolute Auto 0.1 X10*3/uL (0.0-0.2); Eosinophils Absolute Auto 0.2 X10*3/uL (0.0-0.4); Eosinophils Percent Auto 2.6 % (0-4); Hematocrit 36.4 % (37.0-47.0); Hemoglobin 11.3 g/dl (12.0-16.0); Imm Gran Abs Auto 0.05 X10*3/uL (0.00-0.03); Imm Gran Pct Auto 0.6 % (0.0-0.4); Lymphocytes Absolute Auto 1.2 X10*3/uL (1.2-4.9); Lymphocytes Percent Auto 14.6 % (20-40); Mean Corpuscular Hemoglobin 23.7 pg (27.0-33.0); Mean Corpuscular Volume 76.3 fL (80.0-98.0); Monocytes Absolute Auto 0.5 X10*3/uL (0.1-1.2); Monocytes Percent Auto 6.7 % (2-11); Neutrophils Percent Auto 74.5 % (45-73); Platelet Count 249 X10*3/uL (160-400); Red Blood Count 4.77 X10*6/uL (4.20-5.50); Red Cell Distribution Width 15.8 % (11.0-16.0)
[2024-12-16 11:09] LABS: Anion Gap 11 (12-20); Blood Urea Nitrogen 15 mg/dL (9-16); Calcium 8.9 mg/dL (8.4-10.2); Carbon Dioxide 23 mmol/L (22-29); Chloride 109 mmol/L (96-108); Creatinine Clr Calc Pharmacy 105.7; Estimated Glomerular Filt Rate > 60; Glucose Random 115 mg/dL (60-115); Potassium 3.9 mmol/L (3.3-5.1); Sodium 139 mmol/L (135-145)
[2024-12-16 11:20] LABS: Troponin-I High Sensitivity < 2.7 ng/L (<3.5-17.0)
--- NOTE | 2024-12-16 11:52 | ED.GENADULT ---
HPI - General Adult General Chief complaint: General Medical Stated complaint: Chest pain Time Seen by Provider: 12/16/24 11:11 Source: patient Mode of arrival: ambulatory Limitations: no limitations History of Present Illness HPI narrative: This is a 49 years old presented to the emergency department with a chief complaint of epigastric abdominal, pain started on Friday no radiation. Patient has history of GERD the. Denies any fever chills vomiting no exertional symptoms Onset (ago): day(s) (4) Location: abdomen Radiation: non-radiation Severity: moderate Quality: burning Pain Consistency: constant Relieving factors: none Exacerbating factors: none Associated symptoms: denies other symptoms Related Data Home Medications ?Medication ?Instructions ?Recorded ?Confirmed lisinopril 2.5 mg tablet 2.5 mg PO DAILY 01/08/24 03/08/24 sertraline 50 mg tablet (Zoloft) 50 mg PO DAILY 01/08/24 03/08/24 Previous Rx's ?Medication ?Instructions ?Recorded cyclobenzaprine 5 mg tablet 5 mg PO TID PRN muscle spasm #20 09/04/24 tabs dexamethasone 4 mg tablet 4 mg PO BID #6 tabs 09/04/24 Allergies Allergy/AdvReac Type Severity Reaction Status Date / Time honey [HONEY] Allergy Unknown THROAT Verified 12/16/24 10:26 CLOSES Review of Systems Constitutional: Constitutional: Reports no additional constitutional complaints Cardiovascular: Cardiovascular: Reports no additional cardiovascular complaints Gastrointestinal: Gastrointestinal: Reports as per [facility] Past Medical History Attestation statement: The following information was validated with the patient. [facility] Narrative: History of GERD Source: unable to obtain Family History Family History Maternal Grandmother CHF (congestive heart failure) Maternal Grandfather CHF (congestive heart failure) Social History Social History Alcohol intake: current Alcohol intake frequency: holidays/special occasions only Alcohol type: beer Patient Tobacco Use Status: Former Tobacco user Advance Directives: No Advance Directives Information Provided: Yes Physical Exam ED Vital Signs: Vital Signs - 24 hr 12/16/24 10:24 Temperature 97.8 F Pulse Rate 96 Respiratory Rate 18 Blood Pressure 185/97 H Pulse Oximetry 99 Oxygen Delivery Method Room Air BMI result Body Mass Index 32.9 No acute distress Const General: cooperative Nutritional Appearance: average body habitus Orientation/consciousness: patient oriented x3 HENMT Head: Yes normal to inspection Ears: hearing grossly normal bilaterally General nose exam: Normal external nose present Face and sinus: Yes normal facial exam Mouth: Normal oral and palatal mucosa present Throat: Yes posterior oropharynx normal Neck Neck: Yes normal visual inspection Chest Chest palpation & inspection: normal inspection of the chest Resp Effort & Inspection: normal respiratory effort Auscultation: clear to auscultation bilaterally Cardio Jugular venous distension: no JVD Rate: regular rate Rhythm: regular rhythm GI Inspection: Yes normal to inspection Palpation (GI): Soft to palpation, not firm and nontender Percussion: Yes normal to percussion Skin General skin exam: no rashes or lesions noted and elasticity normal Neuro General: patient oriented x3 Course Reevaluation(s) Reevaluation #1: I was notified by the nurse that the patient left, she eloped. Delta troponin was flat Time: 15:46 Medications Administered Discontinued Medications Generic Name Dose Route Start Last Admin Trade Name Freq PRN Reason Stop Dose Admin Al Hydroxide/Mg Hydroxide 30 ml 12/16/24 11:49 12/16/24 12:09 Magnesium Hydrox/Alum Hydrox 30 Ml Oral.Susp PO 12/16/24 11:50 30 ml ONCE ONE Administration Lidocaine HCl 10 ml 12/16/24 11:50 12/16/24 12:09 Lidocaine Hcl Viscous 2 % 15 Ml Solution MUCOUS MEM 12/16/24 11:51 10 ml ONCE ONE Administration Medical Decision Making Medical Decision Making [facility] Narrative: Patient presented with a epigastric abdominal pain history of GERD we will get labs EKG Differential Diagnosis Differential Diagnoses: The differential diagnosis associated with the presentation includes Acute coronary syndrome/peptic ulcer disease/GERD Admission/Observation Consideration of admission/observation: Escalation of care including admission/observation considered Lab Data [facility] Lab Attestation statement: I reviewed the patient's lab results. 12/16/24 10:38 12/16/24 10:38 Labs: Lab Results 12/16/24 12/16/24 Range/Units 10:38 12:10 WBC 8.0 (4.8-10.8) X10*3/uL RBC 4.77 (4.20-5.50) X10*6/uL Hgb 11.3 L (12.0-16.0) g/dl Hct 36.4 L (37.0-47.0) % MCV 76.3 L (80.0-98.0) fL MCH 23.7 L (27.0-33.0) pg MCHC 31.0 (31.0-35.0) g/dl RDW 15.8 (11.0-16.0) % Plt Count 249 (160-400) X10*3/uL MPV 10.0 (9.4-12.3) fL Immature Gran % (Auto) 0.6 H (0.0-0.4) % Neut % (Auto) 74.5 H (45-73) % Lymph % (Auto) 14.6 L (20-40) % [place] % (Auto) 6.7 (2-11) % Eos % (Auto) 2.6 (0-4) % Baso % (Auto) 1.0 (0-2) % Lymph # (Auto) 1.2 (1.2-4.9) X10*3/uL [place] # (Auto) 0.5 (0.1-1.2) X10*3/uL Eos # (Auto) 0.2 (0.0-0.4) X10*3/uL Baso # (Auto) 0.1 (0.0-0.2) X10*3/uL Abs Immat Gran (auto) 0.05 H (0.00-0.03) X10*3/uL Absolute Neuts (auto) 6.0 (2.0-8.3) x10*3/uL Absolute Nucleated RBC 0.000 (0.0-0.012) X10*3/uL Nucleated RBC % (auto) 0.0 (0.0-0.2) /100WBC Sodium 139 (135-145) mmol/L Potassium 3.9 (3.3-5.1) mmol/L Chloride 109 H (96-108) mmol/L Carbon Dioxide 23 (22-29) mmol/L Anion Gap 11 L (12-20) BUN 15 (9-16) mg/dL Creatinine 0.78 (0.5-1.4) mg/dL Estim Creat Clear Calc 105.7 Estimated GFR > 60 Random Glucose 115 (60-115) mg/dL Calcium 8.9 (8.4-10.2) mg/dL Troponin I High Sens < 2.7 < 2.7 (<3.5-17.0) ng/L Lipase 13 (8-78) U/L Independent Interpretation I performed an independent interpretation of an: EKG Interpretation: Normal sinus rhythm rate [address]-T changes Radiology Impression Discussion of test interpretation with radiology: I have reviewed the radiologist's reading. Discharge Plan Discharge Clinical Impression: Chest discomfort, Acute epigastric pain Patient Disposition: Elopement Prescriptions: No Action dexamethasone 4 mg tablet 4 mg PO BID Qty: 6 0RF cyclobenzaprine 5 mg tablet 5 mg PO TID PRN (Reason: muscle spasm) Qty: 20 0RF sertraline [Zoloft] 50 mg tablet 50 mg PO DAILY lisinopril 2.5 mg tablet 2.5 mg PO DAILY Print Language: Danish
[2024-12-16] MEDS: Lidocaine HCl Viscous 2 % 15 ML SOLUTION 10 ML MUCOUS MEM (12:09)
[2024-12-16] MEDS: Magnesium Hydrox/Alum Hydrox 30 ML ORAL.SUSP PO (12:09)
[2024-12-16 12:17] LABS: Lipase 13 U/L (8-78)
[2024-12-16 12:44] LABS: Troponin-I High Sensitivity < 2.7 ng/L (<3.5-17.0)
--- NOTE | 2024-12-16 15:53 | PC.NURSE ---
at about 1500 tech went into room to recheck vitals but pt was not there. checked bathrooms and pt determined to have eloped
[2024-12-16 15:54] VITALS: BP 185/97; PULSE 96; RESP 18; TEMP 36.6; O2SAT 99
== END 2024-12-16 15:54 | disposition left against medical advice (07) ==
PROVIDERS: Emergency Provider Emergency Medicine; PCP Internal Medicine
DX: R07.89 Other chest pain (principal); R10.13 Epigastric pain; K21.9 Gastro-esophageal reflux disease without esophagitis; Z79.899 Other long term (current) drug therapy; Z87.891 Personal history of nicotine dependence
CPT/HCPCS: 36415; 71045; 80048; 83690; 84484; 85025; 93005; 99283

== ENCOUNTER → 2024-12-16 10:22 | Outpatient (BNV) | payer OTHER, SELFPAY | PROVIDERS: Emergency Provider Emergency Medicine; PCP Internal Medicine; Visit Provider Internal Medicine Cardiovascular Disease | DX: R94.31 Abnormal electrocardiogram [ECG] [EKG] (principal); R07.9 Chest pain, unspecified | CPT/HCPCS: 93010 ==

== ENCOUNTER → 2024-12-16 12:03 | Outpatient (BNV) | payer OTHER, SELFPAY | PROVIDERS: Emergency Provider Emergency Medicine; PCP Internal Medicine; Visit Provider Radiology Diagnostic Radiology | DX: R07.9 Chest pain, unspecified (principal) | CPT/HCPCS: 71045 ==

== ENCOUNTER 2025-01-17 09:11 | Outpatient (AMB) | payer OTHER, SELFPAY ==
[2025-01-17 09:14] VITALS: BP 152/90; PULSE 76; BMI 32.7
--- NOTE | 2025-01-17 09:14 | MHC.OFFVIS ---
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 She was recently seen in the emergency room with epigastric discomfort and ruled out for ACS. She now presents for follow-up. Her last prior visit was 03/08/2024. Today she reports that she had been doing well since last visit up until recently. She has had some epigastric discomfort that causes her much concern. It was the worst on the day she went to the emergency room. Only mild episodes since then. Her breathing is unchanged recently. She gets mild shortness of breath with exertion. No PND, orthopnea or edema. No lightheadedness, presyncope, syncope, falls. She is very concerned about her heart and interested in further testing. [facility] Family History Maternal Grandmother CHF (congestive heart failure) Maternal Grandfather CHF (congestive heart failure) Social History Alcohol intake: current Alcohol intake frequency: holidays/special occasions only Alcohol type: beer Patient Tobacco Use Status: Former Tobacco user Review of Systems Const All systems reviewed & are unremarkable except as noted in HPI and below ENT Denies dizziness Card Details: epigastric discomfort Denies chest pain, Denies chest pain at rest, Denies chest pain with activity, Denies rapid heart rate, Denies pedal edema, Denies edema, Denies leg edema, Denies lightheadedness, Denies palpitations, Denies dyspnea, Denies dyspnea on exertion and Denies orthopnea Resp Denies cough, Denies dyspnea and Denies dyspnea on exertion GI Denies hematochezia and Denies change in stool character Musc Denies abnormal gait, Denies limited range of motion, Denies muscle cramps, Denies muscle weakness, Denies numbness, Denies radiating pain into limb, Denies stiffness and Denies tingling Neuro Denies abnormal gait, Denies dizziness, Denies numbness and Denies tingling Endo Denies palpitations Physical Exam Vital Signs: Last Vital Signs Pulse 76 01/17/25 09:14 BP 152/90 H 01/17/25 09:14 BMI result Body Mass Index 32.7 Const General: cooperative, healthy appearing, comfortable and no acute distress Orientation/consciousness: patient oriented x3 Neck Neck: Yes normal visual inspection and Yes no JVD Resp Effort & Inspection: normal respiratory effort Auscultation: clear to auscultation bilaterally, no crackles, no rales, no rhonchi and no wheezes Cardio Jugular venous distension: no JVD Rate: regular rate Rhythm: regular rhythm Heart sounds: S1 normal heart sound present, S2 normal heart sound present, no murmurs and no rubs Neuro General: patient oriented x3 Extrem General: Yes normal to inspection and No no pedal edema Psych Appearance: grossly normal Mental Status: mental status grossly normal Speech and movement: Normal speech and movement present Assessment & Plan Assessment & Plan (1) Atypical chest pain: Code(s): R07.89 - Other chest pain Category: Medical Plan: Recent ER evaluation for Epigastric discomfort and ruled out for ACS. Troponin level normal x2. EKG showed no ischemia. Cardiac risk factors of smoking. Prior cardiac testing includes an echocardiogram was done on 02/27/2024 showing normal study. A stress echocardiogram done on 02/27/2024 showed exercise 6 minutes 30 seconds with moderate shortness of breath, no EKG or echo evidence of ischemia. Blood pressure is mildly elevated today. Will recheck an exercise stress test to evaluate for any ischemia. Her symptom is atypical and not likely to be cardiac however patient is expressing much concern. Signs and symptoms of angina reviewed with her. Stress test results will be reviewed with her at the time of the test. Follow-up appointment will be made if warranted. Cardiology follow-up p.r.n.. (2) Shortness of breath: Code(s): R06.02 - Shortness of breath Category: Medical Plan: As above Plan Time spent on chart review, documentation, interview, assessment Orders: Orders CA stress test Today R07.89 - Other chest pain Coding Level of Care Code Est Pt Level 3 (21070) Complex EM visit Add On G2211 Diagnoses Atypical chest pain R07.89 Shortness of breath R06.02 Time Spent (min) 24
== END 2025-01-17 09:34 | disposition home or self-care (01) ==
LOC: HO.HCS 09:12
PROVIDERS: PCP Internal Medicine; Visit Provider Nurse Practitioner Family
DX: R07.89 Other chest pain (principal); R06.02 Shortness of breath
CPT/HCPCS: 99213; G2211

== ENCOUNTER → 2025-01-17 09:11 | Outpatient (BNVA) | payer OTHER, SELFPAY | PROVIDERS: PCP Internal Medicine; Visit Provider Nurse Practitioner Family | DX: I10 Essential (primary) hypertension (principal); E66.9 Obesity, unspecified; R07.89 Other chest pain; R06.02 Shortness of breath; Z87.891 Personal history of nicotine dependence; Z68.32 Body mass index [BMI] 32.0-32.9, adult | CPT/HCPCS: 99212 ==

== ENCOUNTER → 2025-06-24 13:32 | Outpatient (BNVA) | payer OTHER, SELFPAY | PROVIDERS: PCP Internal Medicine; Visit Provider Physician Assistant | DX: M70.812 Other soft tissue disorders related to use, overuse and pressure, left shoulder (principal) | CPT/HCPCS: 99204 ==

== ENCOUNTER → 2025-07-06 09:16 | Outpatient (BNVA) | payer OTHER, SELFPAY | PROVIDERS: PCP Internal Medicine; Visit Provider Physician Assistant | DX: M75.52 Bursitis of left shoulder (principal) | CPT/HCPCS: 73030; 99215 ==

== ENCOUNTER → 2025-07-22 14:03 | Outpatient (BNVA) | payer OTHER, SELFPAY | PROVIDERS: PCP Internal Medicine; Visit Provider Physician Assistant | DX: M70.812 Other soft tissue disorders related to use, overuse and pressure, left shoulder (principal) | CPT/HCPCS: 99214 ==

== ENCOUNTER 2025-09-02 16:33 | Outpatient (REF) | payer OTHER, SELFPAY ==
--- NOTE | ~2025-09-02 | MR_ITS ---
EXAMINATION: MRI Shoulder without contrast, left TECHNIQUE: Multiplanar multisequence MR imaging through an upper extremity joint without contrast. INDICATION: Decreased range of motion PRIOR: X-ray 07/06/2025 FINDINGS: Rotator Cuff: Intact Labrum: Intact Long biceps tendon: The long biceps tendon is indistinct in the biceps groove is visible at the biceps labral junction through the superior apex of the humeral head. It is also visible in the inferior biceps groove. However, it is indistinct in the rotator interval and upper biceps groove. Acromioclavicular joint: There is minimal degenerative change and trace fluid in the AC joint. Acromial morphology is flat, type I. There is physiologic fluid signal in the subacromial subdeltoid bursa. Axillary pouch: The axillary pouch is intact. Articular cartilage: There are no articular cartilage defects. Bones/Marrow: There are no marrow replacing lesions. Soft tissues: There is no muscle edema, atrophy, or fatty streaking. MR/MR shoulder LT wo con IMPRESSION: Long biceps tendon is indistinct in the rotator interval and upper biceps groove. A tear is not ruled in or ruled out. Correlate with physical exam. Electronically signed by: Tristan Galindo MD 09/02/2025 05:47 PM EST
== END 2025-09-02 16:34 | disposition home or self-care (01) ==
LOC: HO.MRI 16:33
PROVIDERS: PCP Internal Medicine; Visit Provider Internal Medicine
DX: M25.612 Stiffness of left shoulder, not elsewhere classified (principal)
CPT/HCPCS: 73221

== ENCOUNTER → 2025-09-02 17:02 | Outpatient (BNV) | payer OTHER, SELFPAY | PROVIDERS: PCP Internal Medicine; Visit Provider Radiology Diagnostic Radiology | DX: R29.898 Other symptoms and signs involving the musculoskeletal system (principal) | CPT/HCPCS: 73221 ==